=== PATIENT | male | born 1960 | race Caucasian/White ===

== ENCOUNTER 2018-10-08 15:16 | Emergency (ER) | payer BC ==
[2018-10-08 15:31] VITALS: BP 174/98
--- NOTE | 2018-10-08 15:31 | EDM.PDOC ---
ED HPI GENERAL MEDICAL PROBLEM - General Chief Complaint: General Stated Complaint: TOOTH ACHE Time Seen by Provider: 10/08/18 15:29 Source of Information: Reports: Patient - History of Present Illness INITIAL COMMENTS - FREE TEXT/NARRATIVE: HISTORY AND PHYSICAL: History of present illness: [Patient presents with dental pain he has multiple dental caries in tooth erosion [id number] align upper and lower 7 pain concerning the central incisors he does see a dentist and is scheduling follow-up no fever nausea vomiting chills sweats Review of systems: As per history of present illness and below otherwise all systems reviewed and negative. Past medical history: As per history of present illness and as reviewed below otherwise noncontributory. Surgical history: As per history of present illness and as reviewed below otherwise noncontributory. Social history: No reported history of drug or alcohol abuse. Family history: As per history of present illness and as reviewed below otherwise noncontributory. Physical exam: HEENT: Atraumatic, normocephalic, pupils reactive, negative for conjunctival pallor or scleral icterus, mucous membranes moist, throat clear, neck supple, nontender, trachea midline. Lungs: Clear to auscultation, breath sounds equal bilaterally, chest nontender. Heart: S1S2, regular, negative for clicks, rubs, or JVD. Abdomen: Soft, nondistended, nontender. Negative for masses or hepatosplenomegaly. Negative for costovertebral tenderness. Pelvis: Stable nontender. Genitourinary: Deferred. Rectal: Deferred. Extremities: Atraumatic, negative for cords or calf pain. Neurovascular unremarkable. Neuro: Awake, alert, oriented. Cranial nerves II through XII unremarkable. Cerebellum unremarkable. Motor and sensory unremarkable throughout. Exam nonfocal. Diagnostics: [All] Therapeutics: [Amoxicillin 875 by mouth twice a day #20 no refill Toradol] Impression: [Dental pain Multiple dental caries and severe decay Likely early abscess formation] Definitive disposition and diagnosis as appropriate pending reevaluation and review of above. - Related Data Allergies Allergy/AdvReac Type Severity Reaction Status Date / Time meperidine HCl [From Demerol] Allergy Rash Verified 10/08/18 15:28 mushrooms Allergy Rash Uncoded 10/08/18 15:28 wasps Allergy Anaphylactic Uncoded 10/08/18 15:28 Shock Home Meds: Home Meds Valsartan 1 tab PO DAILY 10/10/15 [History] Allopurinol [Zyloprim] 1 tab PO DAILY 03/18/16 [History] Citalopram Hydrobromide [Celexa] 20 mg PO QAM 03/18/16 [History] Citalopram Hydrobromide [Celexa] 40 mg PO BEDTIME 03/18/16 [History] Ibuprofen [Advil] 2 - 3 tab PO Q6HR PRN 03/18/16 [History] Past Medical History HEENT History: Reports: None Other HEENT History: wears glasses Cardiovascular History: Reports: Hypertension Respiratory History: Reports: Sleep Apnea Other Respiratory History: occasionally uses CPAP Gastrointestinal History: Reports: None Genitourinary History: Reports: None, Other (See Below) Other Genitourinary History: ureter stricture, ureterostomy Musculoskeletal History: Reports: Fracture, Gout Other Musculoskeletal History: gout and needs right shoulder repair. Neurological History: Reports: None Psychiatric History: Reports: None, Depression Endocrine/Metabolic History: Reports: Obesity/BMI 30+ Hematologic History: Reports: None Immunologic History: Reports: None Oncologic (Cancer) History: Reports: None Dermatologic History: Reports: None - Infectious Disease History Infectious Disease History: Reports: None - Past Surgical History Cardiovascular Surgical History: Reports: Other (See Below) ED ROS GENERAL - Review of Systems Review Of Systems: See Below ED EXAM, GENERAL - Physical Exam Exam: See Below Departure - Departure Time of Disposition: 15:31 Disposition: Home, Self-Care 01 Condition: Good Clinical Impression: Pain due to dental caries - Discharge Information Referrals: Fred Elliott MD [Primary Care Provider] - Additional Instructions: The following information is given to patients seen in the emergency department who are being discharged to home. This information is to outline your options for follow-up care. We provide all patients seen in our emergency department with a follow-up referral. The need for follow-up, as well as the timing and circumstances, are variable depending upon the specifics of your emergency department visit. If you don't have a primary care physician on staff, we will provide you with a referral. We always advise you to contact your personal physician following an emergency department visit to inform them of the circumstance of the visit and for follow-up with them and/or the need for any referrals to a consulting specialist. The emergency department will also refer you to a specialist when appropriate. This referral assures that you have the opportunity for follow-up care with a specialist. All of these measure are taken in an effort to provide you with optimal care, which includes your follow-up. Under all circumstances we always encourage you to contact your private physician who remains a resource for coordinating your care. When calling for follow-up care, please make the office aware that this follow-up is from your recent emergency room visit. If for any reason you are refused follow-up, please contact the [facility] emergency department at and asked to speak to the emergency department charge nurse.
== END 2018-10-08 15:44 | disposition home or self-care (01) ==
LOC: MW.ED 15:16
DX: K02.9 Dental caries, unspecified (principal); I10 Essential (primary) hypertension; F32.9 Major depressive disorder, single episode, unspecified; Z79.899 Other long term (current) drug therapy; Z88.5 Allergy status to narcotic agent; Z91.09 Other allergy status, other than to drugs and biological substances
CPT/HCPCS: 99282; 99283

== ENCOUNTER 2019-01-12 13:35 | Emergency (ER) | payer BC ==
[2019-01-12] MEDS ORDERED: Benzocaine 20% Topical Spray UD MUCMEM ONE (13:40)
[2019-01-12] MEDS ORDERED: Lidocaine 2% Viscous Solution 15 ML Cup PO ONE (13:40)
--- NOTE | 2019-01-12 13:51 | EDM.PDOC ---
ED HPI GENERAL MEDICAL PROBLEM - General Chief Complaint: ENT Problem Stated Complaint: SORE TOOTH Time Seen by Provider: 01/12/19 13:39 Source of Information: Reports: Patient History Limitations: Reports: No Limitations - History of Present Illness INITIAL COMMENTS - FREE TEXT/NARRATIVE: History of present illness: []Patient has a history of poor dentition and dental caries is complaining of puffiness around his gums on his left lower molars. Patient denies any fevers, chills, facial swelling, difficulties swallowing or shortness of breath. He should states he wants to follow-up with a dentist but needs to be on antibiotics first. Review of systems: As per history of present illness and below otherwise all systems reviewed and negative. Past medical history: As per history of present illness and as reviewed below otherwise noncontributory. Surgical history: As per history of present illness and as reviewed below otherwise noncontributory. Social history: No reported history of drug or alcohol abuse. Family history: As per history of present illness and as reviewed below otherwise noncontributory. Physical exam: General: Well developed, well nourished in NAD HEENT: Atraumatic, normocephalic, pupils reactive, negative for conjunctival pallor or scleral icterus, mucous membranes moist, throat clear, neck supple, nontender, trachea midline. Poor dentition with multiple dental caries Lungs: Clear to auscultation, breath sounds equal bilaterally, chest nontender. Heart: S1S2, regular, negative for clicks, rubs, or JVD. Abdomen: NABS, Soft, nondistended, nontender. Negative for masses or hepatosplenomegaly. Negative for costovertebral tenderness. Pelvis: Stable nontender. Genitourinary: Deferred. Rectal: Deferred. Extremities: Atraumatic, negative for cords or calf pain. Neurovascular unremarkable. Neuro: Awake, alert, oriented. Cranial nerves II through XII unremarkable. Cerebellum unremarkable. Motor and sensory unremarkable throughout. Exam nonfocal. Skin:warm and dry Diagnostics: None Therapeutics: dental balls ED Course: Stable Impression: Total abscess Prescriptions: Pen-Vee K Plan: Take meds as directed, follow up with your primary care physician, return to ER if symptoms worsen or change. Definitive disposition and diagnosis as appropriate pending reevaluation and review of above. - Related Data Allergies Allergy/AdvReac Type Severity Reaction Status Date / Time meperidine HCl [From Demerol] Allergy Rash Verified 10/08/18 15:28 mushrooms Allergy Rash Uncoded 10/08/18 15:28 wasps Allergy Anaphylactic Uncoded 10/08/18 15:28 Shock Home Meds: Home Meds Valsartan 1 tab PO DAILY 10/10/15 [History] Allopurinol [Zyloprim] 1 tab PO DAILY 03/18/16 [History] Citalopram Hydrobromide [Celexa] 20 mg PO QAM 03/18/16 [History] Citalopram Hydrobromide [Celexa] 40 mg PO BEDTIME 03/18/16 [History] Ibuprofen [Advil] 2 - 3 tab PO Q6HR PRN 03/18/16 [History] Penicillin V Potassium 500 mg PO Q6HR #40 tab 01/12/19 [Rx] Past Medical History HEENT History: Reports: None Other HEENT History: wears glasses Cardiovascular History: Reports: Hypertension Respiratory History: Reports: Sleep Apnea Other Respiratory History: occasionally uses CPAP Gastrointestinal History: Reports: None Genitourinary History: Reports: None, Other (See Below) Other Genitourinary History: ureter stricture, ureterostomy Musculoskeletal History: Reports: Fracture, Gout Other Musculoskeletal History: gout and needs right shoulder repair. Neurological History: Reports: None Psychiatric History: Reports: None, Depression Endocrine/Metabolic History: Reports: Obesity/BMI 30+ Hematologic History: Reports: None Immunologic History: Reports: None Oncologic (Cancer) History: Reports: None Dermatologic History: Reports: None - Infectious Disease History Infectious Disease History: Reports: None - Past Surgical History Cardiovascular Surgical History: Reports: Other (See Below) Social & Family History - Family History Family Medical History: Noncontributory - Caffeine Use Caffeine Use: Reports: Coffee ED ROS ENT - Review of Systems Review Of Systems: See Below ED EXAM, ENT - Physical Exam Exam: See Below Course - Orders/Labs/Meds Meds: Medications Discontinued Medications Generic Name Dose Route Start Last Admin Trade Name Freq PRN Reason Stop Dose Admin Benzocaine 2 each 01/12/19 13:40 Hurricaine One 20% MUCMEM 01/12/19 13:41 ONETIME ONE Lidocaine HCl 15 ml 01/12/19 13:40 Xylocaine 2% Viscous PO 01/12/19 13:41 ONETIME ONE Departure - Departure Time of Disposition: 13:50 Disposition: Home, Self-Care 01 Condition: Good Clinical Impression: Dental abscess - Discharge Information *PRESCRIPTION DRUG MONITORING PROGRAM REVIEWED*: No *COPY OF PRESCRIPTION DRUG MONITORING REPORT IN PATIENT ISABEL: No Prescriptions: Penicillin V Potassium 500 mg PO Q6HR #40 tab Additional Instructions: The following information is given to patients seen in the emergency department who are being discharged to home. This information is to outline your options for follow-up care. We provide all patients seen in our emergency department with a follow-up referral. The need for follow-up, as well as the timing and circumstances, are variable depending upon the specifics of your emergency department visit. If you don't have a primary care physician on staff, we will provide you with a referral. We always advise you to contact your personal physician following an emergency department visit to inform them of the circumstance of the visit and for follow-up with them and/or the need for any referrals to a consulting specialist. The emergency department will also refer you to a specialist when appropriate. This referral assures that you have the opportunity for follow-up care with a specialist. All of these measure are taken in an effort to provide you with optimal care, which includes your follow-up. Under all circumstances we always encourage you to contact your private physician who remains a resource for coordinating your care. When calling for follow-up care, please make the office aware that this follow-up is from your recent emergency room visit. If for any reason you are refused follow-up, please contact the Emergency Department at and asked to speak to the emergency department charge nurse. Take meds as directed, follow up with your primary care physician, return to ER if symptoms worsen or change. Primary Care [address] [place] [id number]
[2019-01-12 14:10] VITALS: BP 130/76; PULSE 80
== END 2019-01-12 14:06 | disposition home or self-care (01) ==
LOC: MW.ED 13:35
DX: K04.7 Periapical abscess without sinus (principal); K02.9 Dental caries, unspecified; I10 Essential (primary) hypertension; E66.9 Obesity, unspecified; Z68.41 Body mass index [BMI] 40.0-44.9, adult; Z79.899 Other long term (current) drug therapy; Z88.5 Allergy status to narcotic agent; Z91.038 Other insect allergy status; Z91.018 Allergy to other foods
CPT/HCPCS: 99282; A9270; 99283

== ENCOUNTER 2020-03-07 11:07 | Emergency (ER) | payer BC ==
[2020-03-07] MEDS ORDERED: Ketorolac 30 MG/ML SDV IVPUSH ONE (11:14)
[2020-03-07] MEDS ORDERED: Diphtheria,Pertussis(Acell),Tetanus Vaccine 0.5 ML Syringe IM ONE (11:16)
[2020-03-07] MEDS ORDERED: Acetaminophen 500 MG Tab PO ONE (11:17)
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
--- NOTE | 2020-03-07 12:10 | CT ---
HISTORY: Trauma. TECHNIQUE: Noncontrast CT of the pelvis. COMPARISON: No prior. FINDINGS: There is no acute pelvic or proximal femoral fracture. There are bilateral chronic pars defects at L5. Mild degenerative changes of both hips. Degenerative changes of the pubic symphysis and sacroiliac joints. - Urinary bladder is distended. There is dilatation of both ureters. Moderate sized fat containing left inguinal hernia. - No localized fluid collection or space-occupying hematoma. IMPRESSION: 1. No acute pelvic or proximal femoral fracture. 2. Bilateral chronic pars defects at L5. 3. Degenerative changes. Dictated by Osvaldo Bustos MD @ 03/07/2020 12:09:54 PM Please note that all CT scans at this facility use dose modulation, iterative reconstruction, and/or weight-based dosing when appropriate to reduce radiation dose to as low as reasonably achievable. Dictated by: Osvaldo Bustos MD @ 03/07/2020 12:09:58 (Electronically Signed)
--- NOTE | 2020-03-07 12:34 | CT ---
Indication: Trauma. Back pain. Technique: Noncontrast axial CT of the lumbar spine with coronal and sagittal reformats are provided. Comparison: No prior studies are available for comparison at this institution. Findings: There is accentuation of lumbar lordosis. There is 3 mm retrolisthesis at L4-5 and 4 mm anterolisthesis at L5-S1. Vertebral body heights are maintained. No acute fracture, dislocation or subluxation. No prevertebral or paraspinal soft tissue swelling. The urinary bladder is distended. Bilateral hydroureteronephrosis. There are chronic bilateral L5 pars defects with minimal grade 1 anterolisthesis (spondylolysis with spondylolisthesis). T11-12: There is no spinal canal stenosis or neural foraminal narrowing. T12-L1: There is no spinal canal stenosis or neural foramina narrowing. Incidental peridiscal calcification. L1-2: No significant spinal canal stenosis or neural foraminal narrowing. Incidental peridiscal calcification. L2-3: No significant spinal canal stenosis or neural foramina narrowing. L3-4: Mild disc bulge. No significant spinal canal stenosis or neural foramina narrowing. L4-5: 3 millimeter retrolisthesis. Mild unroofing of the disc/pseudo bulge. No significant spinal canal stenosis. Mild bilateral neural foramina narrowing. L5-S1: 4 millimeter anterolisthesis. Diffuse unroofing of the disc. Bilateral chronic L5 pars defects. Moderate craniocaudal right neural foramina narrowing with possible contact between endplate spur and right L5 nerve. Mild craniocaudal left neural foraminal narrowing. Sacroiliac joint degenerative changes. Impression : 1. No evidence of acute fracture. 2. At L5-S1 there is grade 1 anterolisthesis due to bilateral pars defects which results in moderate right and mild left craniocaudal neural from narrowing with possible impingement of the right L5 nerve. At L4-5 there is mild retrolisthesis with mild disc bulge and mild bilateral neural from narrowing. Sacroiliac joint degenerative changes. 3. Bilateral hydroureteronephrosis. The urinary bladder is distended. Please note that all CT scans at this facility use dose modulation, iterative reconstruction, and/or weight-based dosing when appropriate to reduce radiation dose to as low as reasonably achievable. Dictated by Karsten Vieira MD @ Mar 07 2020 12:23PM Signed by Dr. Karsten Vieira @ Mar 07 2020 12:32PM
[2020-03-07 12:48] VITALS: BP 158/92; PULSE 82
== END 2020-03-07 12:48 | disposition home or self-care (01) ==
LOC: MW.ED 11:07
DX: S39.012A Strain of muscle, fascia and tendon of lower back, initial encounter (principal); S16.1XXA Strain of muscle, fascia and tendon at neck level, initial encounter; R33.9 Retention of urine, unspecified; F32.9 Major depressive disorder, single episode, unspecified; M10.9 Gout, unspecified; E66.9 Obesity, unspecified; Z68.42 Body mass index [BMI] 45.0-49.9, adult; Z88.5 Allergy status to narcotic agent; Z91.018 Allergy to other foods; Z79.899 Other long term (current) drug therapy; V58.5XXA Driver of pick-up truck or van injured in noncollision transport accident in traffic accident, initial encounter; Y92.410 Unspecified street and highway as the place of occurrence of the external cause
CPT/HCPCS: 72131; 72192; 96374; 99285; A9270; J1885; 99283

== ENCOUNTER 2020-04-18 06:30 | Day surgery (SDC) | payer BC, OTHER ==
[~2020-04-18 06:30] MED LIST: Lactated Ringers 1,000 ML IV SCH; ceFAZolin 2 GM in Premix Bag 1 BAG IV ONE
[2020-04-18] MEDS ORDERED: Lidocaine 2% 5 ML SDV ONE (06:56)
[2020-04-18] MEDS ORDERED: Ondansetron 4 MG/2 ML SDV ONE (06:56)
[2020-04-18] MEDS ORDERED: Midazolam 1 MG/ML 2 ML SDV ONE ×2 (06:56)
[2020-04-18] MEDS ORDERED: Propofol 200 MG/20 ML SDV ONE ×2 (06:56→08:41)
[2020-04-18] MEDS ORDERED: Glycopyrrolate 0.2 MG/ML SDV ONE (06:56)
[2020-04-18] MEDS ORDERED: fentaNYL 100 MCG/2 ML SDV ONE (06:57)
--- NOTE | 2020-04-18 07:42 | PCM.PREANE ---
Preanesthetic Assessment - Anesthesia/Transfusion/Family Hx Anesthesia History: Prior Anesthesia Without Reaction Family History of Anesthesia Reaction: No Transfusion History: No Prior Transfusion(s) - Review of Systems General: No Symptoms Pulmonary: No Symptoms Cardiovascular: No Symptoms Gastrointestinal: No Symptoms Neurological: No Symptoms Other: Reports: None - Physical Assessment NPO Status Date: 04/17/20 Vital Signs: Last Vital Signs Temp 96.8 F L 04/18/20 07:20 Pulse 81 04/18/20 07:20 Resp 15 04/18/20 07:20 BP 140/86 04/18/20 07:20 Pulse Ox 96 04/18/20 07:20 Height: 5 ft 6 in Weight: 134.717 kg ASA Class: 2 Mental Status: Alert & Oriented x3 Airway Class: Mallampati = 3 Dentition: Reports: Normal Dentition, Missing Tooth/Teeth ROM/Head Extension: Full Lungs: Clear to Auscultation, Normal Respiratory Effort Cardiovascular: Regular Rate, Regular Rhythm - Allergies Allergies/Adverse Reactions: Allergies Allergy/AdvReac Type Severity Reaction Status Date / Time meperidine HCl [From Demerol] Allergy Rash Verified 04/05/20 15:12 mushrooms Allergy Rash Uncoded 04/05/20 15:12 wasps Allergy Anaphylactic Uncoded 01/12/19 13:48 Shock - Blood Blood Available: No - Anesthesia Plan Pre-Op Medication Ordered: None - Acknowledgements Anesthesia Type Planned: Spinal Pt an Appropriate Candidate for the Planned Anesthesia: Yes Alternatives and Risks of Anesthesia Discussed w Pt/Guardian: Yes Pt/Guardian Understands and Agrees with Anesthesia Plan: Yes PreAnesthesia Questionnaire HEENT History: Reports: Other (See Below) Other HEENT History: wears glasses Cardiovascular History: Reports: Hypertension Respiratory History: Reports: Sleep Apnea Other Respiratory History: occasionally uses CPAP (instructed to bring his CPAP with him the day of surgery) Gastrointestinal History: Reports: Other (See Below) Other Gastrointestinal History: occasional heartburn Genitourinary History: Reports: Other (See Below) Other Genitourinary History: ureter stricture, ureterostomy, pee hydronephrosis & hydroureters secondary to bladder outlet syndrome Musculoskeletal History: Reports: Fracture, Gout Other Musculoskeletal History: gout and needs right shoulder repair. Neurological History: Reports: None Psychiatric History: Reports: Depression Endocrine/Metabolic History: Reports: Obesity/BMI 30+ Hematologic History: Reports: None Immunologic History: Reports: None Oncologic (Cancer) History: Reports: None Dermatologic History: Reports: None - Infectious Disease History Infectious Disease History: Reports: None - Past Surgical History Head Surgeries/Procedures: Reports: None HEENT Surgical History: Reports: Other (See Below) Other HEENT Surgeries/Procedures: surgergical biopsy of temperol veins Cardiovascular Surgical History: Reports: Other (See Below) Other Cardiovascular Surgeries/Procedures: temporal Artery Bx Respiratory Surgical History: Reports: None GI Surgical History: Reports: None Male Surgical History: Reports: Circumcision Other Male Surgeries/Procedures: urethrotomy Endocrine Surgical History: Reports: None Neurological Surgical History: Reports: None Musculoskeletal Surgical History: Reports: ORIF, Shoulder Surgery Other Musculoskeletal Surgeries/Procedures:: ORIF right leg hx rt RTCR Dermatological Surgical History: Reports: None - SUBSTANCE USE Tobacco Use Within Last Twelve Months: Other (See Below) - HOME MEDS Home Medications: Home Meds Allopurinol [Zyloprim] 300 mg PO DAILY 03/18/16 [History] Citalopram Hydrobromide [Celexa] 20 mg PO DAILY 03/18/16 [History] Ibuprofen [Advil] 2 - 3 tab PO Q6HR PRN 03/18/16 [History] Losartan Potassium 50 mg PO DAILY 01/12/19 [History] Tamsulosin HCl 2 tab PO DAILY 04/05/20 [History] - CURRENT (IN HOUSE) MEDS Current Meds: Current Medications Lactated Ringer's (Ringers, Lactated) 1,000 mls @ 100 mls/hr IV ASDIRECTED [facility] Discontinued Medications Fentanyl (Sublimaze) Confirm Administered Dose 100 mcg .ROUTE .STK-MED ONE Stop: 04/18/20 06:58 Glycopyrrolate (Robinul) Confirm Administered Dose 0.2 mg .ROUTE .STK-MED ONE Stop: 04/18/20 06:57 Lactated Ringer's (Ringers, Lactated) 1,000 mls @ 100 mls/hr IV ASDIRECTED [facility] Last Admin: 04/18/20 07:15 Dose: 100 mls/hr Documented by: Cefazolin Sodium/Dextrose 2 gm (/ Premix) 50 mls @ 100 mls/hr IV ONCALL ONE Stop: 04/11/20 00:34 Cefazolin Sodium/Dextrose 3 gm (/ Premix) 75 mls @ 100 mls/hr IV ONCALL ONE Stop: 04/18/20 05:44 Lidocaine (Xylocaine-Mpf 2%) Confirm Administered Dose 5 ml .ROUTE .STK-MED ONE Stop: 04/18/20 06:57 Midazolam HCl (Versed 1 Mg/Ml) Confirm Administered Dose 2 mg .ROUTE .STK-MED ONE Stop: 04/18/20 06:57 Midazolam HCl (Versed 1 Mg/Ml) Confirm Administered Dose 2 mg .ROUTE .STK-MED ONE Stop: 04/18/20 06:57 Ondansetron HCl (Zofran) Confirm Administered Dose 4 mg .ROUTE .STK-MED ONE Stop: 04/18/20 06:57 Propofol (Diprivan 20 Ml) Confirm Administered Dose 200 mg .ROUTE .STK-MED ONE Stop: 04/18/20 06:57
[2020-04-18] MEDS ORDERED: Sodium Chloride 0.9% 20 ML ONE (07:44)
[2020-04-18] MEDS ORDERED: ceFAZolin 1 GM Vial ONE ×2 (07:44→08:33)
[2020-04-18] MEDS ORDERED: Phenylephrine 1% 10 MG/ML SDV ONE (09:03)
--- NOTE | 2020-04-18 10:30 | PCM.POSTAN ---
POST ANESTHESIA ASSESSMENT - MENTAL STATUS Mental Status: Alert, Oriented - VITAL SIGNS Vital Signs: Last Vital Signs Temp 97.5 F 04/18/20 10:03 Pulse 66 04/18/20 10:24 Resp 15 04/18/20 10:24 BP 108/65 04/18/20 10:24 Pulse Ox 97 04/18/20 10:24 - RESPIRATORY Respiratory Status: Respiratory Rate WNL, Airway Patent, O2 Saturation Stable - CARDIOVASCULAR CV Status: Pulse Rate WNL, Blood Pressure Stable - GASTROINTESTINAL GI Status: No Symptoms - POST OP HYDRATION Hydration Status: Adequate & Stable
--- NOTE | 2020-04-18 11:59 | OR ---
SURGEON: Jazmin Martino M.D. DATE OF PROCEDURE: 04/18/2020 PREOPERATIVE DIAGNOSIS: BPH with urinary obstruction. 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 OPERATION: Urethral dilatation, visual urethrotomy, placement of a 12-Sammarinese urethral catheter. DESCRIPTION OF PROCEDURE: The patient was placed in dorsal lithotomy position, prepped and draped in sterile drapes. The head of the penis was circumcised at some time in the past and the penile shaft skin was actually attached to the mid glans and there was no visible urethral meatus, so we had to start with a 12-Sammarinese sound to recreate the opening or find it and that was stretched to about 20-Sammarinese. Urethroscopy using a 17-Sammarinese urethroscope was used and shows extensive urethral stricture. Eventually, I had to use the rigid ureteroscope to gain access into the correct channel and was able to advance a guidewire through the ureteroscope up into the bladder. I could not reach the bladder with the ureteroscope, but I was side of the veru, and over the guidewire, I was able to put a 12-Sammarinese Rosas catheter. The balloon was inflated and the bladder was irrigated and the urine is clear. At this point, the cut that I had to make in the urethral meatus had to be sutured on both sides to help reduce the risk of those edges getting back together and recreate the previous stricture formation. With that done, the procedure was terminated, and the patient was sent to recovery room in stable condition. PLAN: With the extensive scarring in the penile urethra, he will do okay with a catheter in for the next 3 weeks, but it is unlikely that he will have a good channel, urethral channel that is, going forward. So the best option probably is to create a perineal urethrostomy and resect the urethra through that and keep that along with the patient to pass his urine through, but it will depend on whether the patient actually is willing to take that option. I have explained it to his , but not to him yet. He tolerated the procedure well. BILLY / HERIBERTO /[id number]
[2020-04-18] MEDS ORDERED: Acetaminophen 325 MG Tab ONE (12:23)
[2020-04-18] MEDS ORDERED: Acetaminophen 325 MG Tab PO ONE (12:30)
[2020-04-18 12:35] VITALS: BP 134/78; PULSE 88
--- NOTE | 2020-04-18 13:39 | PCM48HPAN ---
Post Anesthesia Note - EVALUATION WITHIN 48HRS OF ANESTHETIC Vital Signs in Normal Range: Yes Patient Participated in Evaluation: Yes Respiratory Function Stable: Yes Airway Patent: Yes Cardiovascular Function Stable: Yes Hydration Status Stable: Yes Pain Control Satisfactory: Yes Nausea and Vomiting Control Satisfactory: Yes Mental Status Recovered: Yes Vital Signs: Last Vital Signs Temp 97.2 F 04/18/20 10:30 Pulse 88 04/18/20 12:00 Resp 15 04/18/20 12:00 BP 134/78 04/18/20 12:00 Pulse Ox 95 04/18/20 12:00
[2020-04-19] MEDS ORDERED: Losartan 50 MG Tab PO SCH (09:00)
[2020-04-19] MEDS ORDERED: Allopurinol 300 MG Tab PO SCH (09:00)
[2020-04-19] MEDS ORDERED: Non-Formulary Medication 1 Each (Citalopram Hydrobromide [Celexa] 20 MG) PO SCH (09:00)
[2020-04-19] MEDS ORDERED: Tamsulosin 0.4 MG Cap.ER PO SCH (09:00)
== END 2020-04-18 13:45 | disposition home or self-care (01) ==
LOC: MW.SDS 06:30
PROVIDERS: ATTEND Urology
DX: N35.919 Unspecified urethral stricture, male, unspecified site (principal); N40.1 Benign prostatic hyperplasia with lower urinary tract symptoms; N13.8 Other obstructive and reflux uropathy; N48.0 Leukoplakia of penis; F32.9 Major depressive disorder, single episode, unspecified; I10 Essential (primary) hypertension; E66.9 Obesity, unspecified; Z88.8 Allergy status to other drugs, medicaments and biological substances; Z79.899 Other long term (current) drug therapy; N39.0 Urinary tract infection, site not specified; Z98.890 Other specified postprocedural states; Z87.891 Personal history of nicotine dependence; Z91.018 Allergy to other foods; Z68.42 Body mass index [BMI] 45.0-49.9, adult
CPT/HCPCS: 52281; A9270; C1769; J0690; J2250; J2370; J2405; J2704; J3010; J3490; J7120; 00914; J2001

== ENCOUNTER 2020-07-26 07:35 | Day surgery (SDC) | payer BC ==
[~2020-07-26 07:35] MED LIST changes: +Sodium Chloride 0.9% 10 ML SDV IV PRN; +Sodium Chloride 0.9% 10 ML Syringe FLUSH PRN; +Sodium Chloride 0.9% 2.5 ML Syringe FLUSH PRN; -ceFAZolin 2 GM in Premix Bag 1 BAG IV ONE
--- NOTE | 2020-07-26 08:14 | PCM.PREANE ---
Preanesthetic Assessment - Anesthesia/Transfusion/Family Hx Anesthesia History: Prior Anesthesia Without Reaction Family History of Anesthesia Reaction: No Transfusion History: No Prior Transfusion(s) - Review of Systems General: No Symptoms Pulmonary: No Symptoms Cardiovascular: No Symptoms Gastrointestinal: No Symptoms Neurological: No Symptoms Other: Reports: None - Physical Assessment NPO Status Date: 07/26/20 NPO Status Time: 00:01 Vital Signs: Last Vital Signs Temp 96.8 F L 07/26/20 07:40 Pulse 76 07/26/20 07:40 Resp 16 07/26/20 07:40 BP 143/87 H 07/26/20 07:40 Pulse Ox 97 07/26/20 07:40 Height: 5 ft 5 in Weight: 179 lb ASA Class: 2 Mental Status: Alert & Oriented x3 Airway Class: Mallampati = 3 Dentition: Reports: Normal Dentition ROM/Head Extension: Limited/Partial Lungs: Clear to Auscultation, Normal Respiratory Effort Cardiovascular: Regular Rate, Regular Rhythm - Allergies Allergies/Adverse Reactions: Allergies Allergy/AdvReac Type Severity Reaction Status Date / Time meperidine HCl [From Demerol] Allergy Rash Verified 07/26/20 07:43 mushrooms Allergy Rash Uncoded 07/26/20 07:43 wasps Allergy Anaphylactic Uncoded 07/26/20 07:43 Shock - Anesthesia Plan Pre-Op Medication Ordered: None - Acknowledgements Anesthesia Type Planned: General Anesthesia Pt an Appropriate Candidate for the Planned Anesthesia: Yes Alternatives and Risks of Anesthesia Discussed w Pt/Guardian: Yes Pt/Guardian Understands and Agrees with Anesthesia Plan: Yes Additional Comments: npo after mn htn no cv problems depression gustavo does not use his cpap tob quit 2005 etoh occ gout par no questions PreAnesthesia Questionnaire HEENT History: Reports: Other (See Below) Other HEENT History: wears glasses Cardiovascular History: Reports: Hypertension Respiratory History: Reports: Sleep Apnea Other Respiratory History: has not used CPAP for 6 years Gastrointestinal History: Reports: Other (See Below) Other Gastrointestinal History: occasional heartburn Genitourinary History: Reports: Other (See Below) Other Genitourinary History: ureter stricture, ureterostomy, pee hydronephrosis & hydroureters secondary to bladder outlet syndrome, currently has indwelling catheter Musculoskeletal History: Reports: Fracture, Gout Other Musculoskeletal History: gout and needs right shoulder repair. hx of fx right leg Neurological History: Reports: None Psychiatric History: Reports: Depression Endocrine/Metabolic History: Hematologic History: Reports: None Immunologic History: Reports: None Oncologic (Cancer) History: Reports: None Dermatologic History: Reports: None - Infectious Disease History Infectious Disease History: Reports: None - Past Surgical History Head Surgeries/Procedures: Reports: None HEENT Surgical History: Reports: Other (See Below) Other HEENT Surgeries/Procedures: surgical biopsy of temperol artery Cardiovascular Surgical History: Reports: Other (See Below) Other Cardiovascular Surgeries/Procedures: temporal Artery Bx Respiratory Surgical History: Reports: None GI Surgical History: Reports: None Male Surgical History: Reports: Circumcision Other Male Surgeries/Procedures: urethrotomy, urethral dilitation Endocrine Surgical History: Reports: None Neurological Surgical History: Reports: None Musculoskeletal Surgical History: Reports: ORIF, Shoulder Surgery Other Musculoskeletal Surgeries/Procedures:: ORIF right leg- has leonila in leg, hx rt RTCR Dermatological Surgical History: Reports: None - SUBSTANCE USE Tobacco Use Status *Q: Current Every Day Tobacco User Tobacco Use Within Last Twelve Months: Snuff/Dip Recreational Drug Use History: No - HOME MEDS Home Medications: Home Meds Allopurinol [Zyloprim] 300 mg PO DAILY 03/18/16 [History] Citalopram Hydrobromide [Celexa] 20 mg PO DAILY 03/18/16 [History] Ibuprofen [Advil] 4 tab PO DAILY PRN 03/18/16 [History] Losartan Potassium 50 mg PO DAILY 01/12/19 [History] - CURRENT (IN HOUSE) MEDS Current Meds: Current Medications Lactated Ringer's (Ringers, Lactated) 1,000 mls @ 100 mls/hr IV ASDIRECTED TONY Last Admin: 07/26/20 07:44 Dose: 100 mls/hr Documented by: Tobramycin 120 mg/ Sodium (Chloride) 103 mls @ 103 mls/hr IV ONCALL TONY Sodium Chloride (Sodium Chloride 0.9% 10 Ml Syringe) 10 ml FLUSH ASDIRECTED PRN PRN Reason: Keep Vein Open Sodium Chloride (Sodium Chloride 0.9% 2.5 Ml Syringe) 2.5 ml FLUSH ASDIRECTED PRN PRN Reason: Keep Vein Open Sodium Chloride (Sodium Chloride 0.9% 10 Ml Sdv) 10 ml IV ASDIRECTED PRN PRN Reason: IV Use Discontinued Medications Tobramycin 120 mg/ Sodium (Chloride) 103 mls @ 103 mls/hr IV ONETIME ONE Stop: 07/11/20 06:01
[2020-07-26] MEDS ORDERED: fentaNYL 250 MCG/5 ML SDV ONE (08:30)
[2020-07-26] MEDS ORDERED: Dexamethasone 4 MG/ML 5 ML MDV ONE (08:30)
[2020-07-26] MEDS ORDERED: Propofol 200 MG/20 ML SDV ONE (08:30)
[2020-07-26] MEDS ORDERED: Ondansetron 4 MG/2 ML SDV ONE (08:30)
[2020-07-26] MEDS ORDERED: Midazolam 1 MG/ML 2 ML SDV ONE (08:30)
[2020-07-26] MEDS ORDERED: Succinylcholine/Sod PF 100 MG/5 ML SYRINGE IV ONE (10:05)
[2020-07-26] MEDS ORDERED: Rocuronium Bromide 50 MG/5 ML Syringe ONE (10:05)
--- NOTE | 2020-07-26 10:25 | PCM.POSTAN ---
POST ANESTHESIA ASSESSMENT - VITAL SIGNS Vital Signs: Last Vital Signs Temp 36 C L 07/26/20 07:40 Pulse 76 07/26/20 07:40 Resp 16 07/26/20 07:40 BP 143/87 H 07/26/20 07:40 Pulse Ox 97 07/26/20 07:40 - RESPIRATORY Respiratory Status: Respiratory Rate WNL - CARDIOVASCULAR CV Status: Pulse Rate WNL - GASTROINTESTINAL GI Status: No Symptoms - POST OP HYDRATION Hydration Status: Adequate & Stable
[2020-07-26] MEDS ORDERED: ePHEDrine 50 MG/ML SDV ONE (10:33)
[2020-07-26] MEDS ORDERED: Glycopyrrolate 0.2 MG/ML SDV ONE (10:37)
[2020-07-26] MEDS ORDERED: fentaNYL 100 MCG/2 ML SDV IVPUSH PRN (10:54)
[2020-07-26] MEDS ORDERED: Ibuprofen 800 MG Tab PO PRN (11:29)
--- NOTE | 2020-07-26 12:32 | OR ---
SURGEON: Jazmin Martino M.D. DATE OF PROCEDURE: 07/26/2020 PREOPERATIVE DIAGNOSIS: Extensive penile urethral strictures. POSTOPERATIVE DIAGNOSIS: Extensive penile urethral strictures. OPERATION ATTEMPTED: Perineal urethrostomy unsuccessful and replacement of a Rosas catheter. DESCRIPTION OF PROCEDURE: The patient was given general anesthesia. The rigid ureteroscope was advanced in the urethra encountering multiple urethral strictures until I got to the bulbous urethral stricture, what appeared less constricted than the rest of the urethra. Subsequently, he was placed in the exaggerated lithotomy position. An incision was made in the perineum. Dissection was carried out. However, the distance between the urethra and the skin was such that it would not have been possible to suture the urethra to the skin and keep those stitches intact, which would result in disruption of the suturing and failure of the procedure. The distance between the urethra and the skin was on the average about 6 cm because how much fat was in between. At that point, I placed a 14-[place] catheter in his bladder, which went in rather easy compared to previous attempts and that made it possible to stretch the urethra by leaving this catheter in for a month, changing it for a 16-[place] African, and then possibly one more time to 18 or 20-[place] African and give him something that he would stretch his own urethra with at least once a day such as a 14-[place] catheter maybe. With that decision made, the wound was closed in 2 layers. The subcutaneous fat was reapproximated with 2-0 chromic. The skin was closed with 3-0 chromic mattress sutures. The patient tolerated the procedure well and was moved to recovery room in good condition. I will see him next week and go from there. BILLY / HERIBERTO /[id number]
[2020-07-26 12:49] VITALS: BP 109/56; PULSE 73
--- NOTE | 2020-07-26 13:26 | PCM48HPAN ---
Post Anesthesia Note - EVALUATION WITHIN 48HRS OF ANESTHETIC Vital Signs in Normal Range: Yes Patient Participated in Evaluation: Yes Respiratory Function Stable: Yes Airway Patent: Yes Cardiovascular Function Stable: Yes Hydration Status Stable: Yes Pain Control Satisfactory: Yes Nausea and Vomiting Control Satisfactory: Yes Mental Status Recovered: Yes Vital Signs: Last Vital Signs Temp 36.3 C 07/26/20 12:00 Pulse 73 07/26/20 12:45 Resp 14 07/26/20 12:45 BP 109/56 L 07/26/20 12:45 Pulse Ox 93 L 07/26/20 12:45
[2020-07-27] MEDS ORDERED: Losartan 50 MG Tab PO SCH (09:00)
[2020-07-27] MEDS ORDERED: Allopurinol 300 MG Tab PO SCH (09:00)
[2020-07-27] MEDS ORDERED: Citalopram 20 MG Tab PO SCH (09:00)
== END 2020-07-26 14:29 | disposition home or self-care (01) ==
LOC: MW.SDS 07:35
PROVIDERS: ATTEND Urology
DX: N48.89 Other specified disorders of penis (principal); M10.9 Gout, unspecified; I10 Essential (primary) hypertension; G47.30 Sleep apnea, unspecified; F17.210 Nicotine dependence, cigarettes, uncomplicated; Z88.8 Allergy status to other drugs, medicaments and biological substances; Z91.018 Allergy to other foods; Z91.030 Bee allergy status; Z79.899 Other long term (current) drug therapy
CPT/HCPCS: 53010; J0330; J1100; J2250; J2405; J2704; J3010; J3260; J3490; J7120; 00920

== ENCOUNTER 2023-01-03 14:38 | Emergency (ER) | payer BC ==
[2023-01-03] MEDS ORDERED: Nitroglycerin 0.4 MG Tab.SL SL PRN (15:05)
[2023-01-03 15:07] LABS: BASOPHILS PERCENT AUTO 0.3 % (0.0-1.5); EOSINOPHILS ABSOLUTE AUTO 0.4 K/uL (0.0-0.7); EOSINOPHILS PERCENT AUTO 3.1 % (0.0-7.0); HEMATOCRIT 47.6 % (38.0-50.0); HEMOGLOBIN 15.8 g/dL (13.0-17.0); LYMPHOCYTES ABSOLUTE AUTO 2.8 K/uL (0.6-2.4); LYMPHOCYTES PERCENT AUTO 23.5 % (16.0-40.0); MEAN CORPUSCULAR HEMOGLOBIN 29.1 pg (27.0-32.0); MEAN CORPUSCULAR HGB CONC 33.2 g/dL (31.0-37.0); MEAN CORPUSCULAR VOLUME 87.7 fL (80.0-98.0); MONOCYTES ABSOLUTE AUTO 0.7 K/uL (0.0-0.8); NEUTROPHILS ABSOLUTE AUTO 8.1 K/uL (1.4-5.7); NEUTROPHILS PERCENT AUTO 67.1 % (48.0-80.0); NRBC ABSOLUTE 0 K/uL; PLATELET COUNT,PLT 252 K/uL (150-400); RED BLOOD CELL COUNT 5.43 M/uL (4.50-5.90)
[2023-01-03] MEDS ORDERED: Aspirin 81 MG Tab.Chew PO ONE (15:07)
[2023-01-03 15:16] LABS: INR 1.04 (0.86-1.11); PTT,PARTIAL THROMBOPLSTIN TIME 31.6 SEC (23.9-30.7)
[2023-01-03 15:22] LABS: A/G RATIO 0.9 (0.9-1.6); ALANINE AMINOTRANSFERASE,ALT 34 IU/L (14-63); ALBUMIN 3.6 g/dL (3.4-5.0); ALKALINE PHOSPHATASE 103 U/L (46-116); ASPARTATE AMNIOTRANSFERASE,AST 21 IU/L (15-37); BILIRUBIN TOTAL 0.7 mg/dL (0.2-1.0); BLOOD UREA NITROGEN,BUN 11 mg/dL (7.0-18.0); CALCIUM 8.9 mg/dL (8.5-10.1); CARBON DIOXIDE,CO2 29.9 mmol/L (21.0-32.0); CHLORIDE,CL 102 mmol/L (98-107); EST CRCL DRUG DOSING (CG) 70.89 mL/min; GLUCOSE RANDOM 101 mg/dL (74-106); LIPASE 38 U/L (16-77); MAGNESIUM 1.6 mg/dL (1.8-2.4); POTASSIUM,K 3.9 mmol/L (3.5-5.1); PROTEIN TOTAL,TP 7.4 g/dL (6.4-8.2); SODIUM,NA 138 mmol/L (136-148)
[2023-01-03 15:25] LABS: ESTIMATED GFR 86 mL/min (>60)
[2023-01-03] MEDS ORDERED: Acetaminophen 500 MG Tab PO ONE (15:34)
[2023-01-03 18:02] VITALS: BP 135/89; PULSE 73
== END 2023-01-03 18:01 | disposition home or self-care (01) ==
LOC: MW.ED 14:38
DX: R07.89 Other chest pain (principal); I10 Essential (primary) hypertension; Z91.048 Other nonmedicinal substance allergy status; Z88.8 Allergy status to other drugs, medicaments and biological substances; Z79.899 Other long term (current) drug therapy
CPT/HCPCS: 36415; 71045; 80053; 83690; 83735; 84484; 85025; 85610; 85730; 93005; 99285; A9270; 93010; 99283